=== PATIENT | female | born 1930 | race Caucasian/White ===

== ENCOUNTER 2016-11-14 10:11 | Outpatient (CLI) ==
--- NOTE | 2016-11-14 10:39 | DI ---
EXAM: CHEST FRONTAL AND LATERAL VIEWS HISTORY: Bronchitis. COMPARISON: None FINDINGS: Heart size is normal. Somewhat nodular appearance of the right hilar structures possibly within normal limits for normal variation and regional vascular/bronchovascular architecture. There is moderate atherosclerotic disease. Chronic-appearing interstitial changes diffusely. There is a nodular density over the left lung base measuring 0.6 cm without definite calcification. No vascul ar congestion, consolidated pneumonia, pleural fluid or pneumothorax. IMPRESSION: 1. There is a left lung base nodule of indeterminate etiology. Somewhat nodular appearance of the r ight hilar structures. Follow-up chest radiography is recommended to assure stability. 2. Cannot exclude a component chronic obstructive pulmonary disease. 3. No consolidated pneumonia.
== END 2016-11-14 10:12 | disposition home or self-care (01) ==
LOC: RAD 10:11
PROVIDERS: ATTEND Family Medicine
DX: J40 Bronchitis, not specified as acute or chronic (principal)

== ENCOUNTER 2017-05-03 14:51 | Outpatient (CLI) | END 2017-05-03 14:52 | disposition short-term general hospital (02) | LOC: AMBL 14:51 | PROVIDERS: ATTEND Emergency Medicine | DX: S69.90XA Unspecified injury of unspecified wrist, hand and finger(s), initial encounter (principal); S49.90XA Unspecified injury of shoulder and upper arm, unspecified arm, initial encounter; W19.XXXA Unspecified fall, initial encounter ==

== ENCOUNTER 2017-07-06 13:00 | Outpatient (RCR) ==
--- NOTE | 2017-06-26 18:03 | RS.OTEVAL ---
Subjective Date of Note: 06/26/17 Visit #: 1 Date of Evaluation: 06/26/17 Payer Source: MEDICARE Date of Onset/Injury/Change in Status: 05/03/17 Surgery Performed?: Yes Date of Procedure: 05/09/17 Treatment Diagnosis: Left Intraarticular fracture of Lower end of left radius Treatment Side (optional): Left *Precautions: At risk for falls, painful wrist Prior Level of Function.....Patient was independent with: ADL's, Self Care, Work /Vocation, Caregiving, Ambulation/Mobility, Community Integration/Access History of Condition/Mechanism of Injury: Pt reports she fell on May 03, 2017. Pt was given a soft cast and then had surgery on 05/09/17. Pt was then casted on 05/23/17 with a hard cast and then it was removed on 06/20/17. Pt has had edema and pain and decreased AROM of digits since. Level of Function: Pt completes right arm ADLS. Pt reports difficulty putting on her bra and pulling up her pants and fastening things. Pt is independent with bathing. Pt has difficulty with dressing, cooking, and cleaning and driving. Functional Limitations: Sleep, Self Care, ADL's, Reaching, Pushing, Pulling, Lifting, Carrying, Sitting, Community Access/Integration Current Complaints/Gains: Pt has difficulty putting on her bra. Pt has difficulty pulling up her pants. Self care that requires two hands is difficult. Pt is not able to carry items with the LUE due to limited supination and digit flexion due to edema and pain of LUE. Medical History Medical History Comments:: Face cancer, and Bladder cancer, Thyroid surgery, hysterectomy, tonsils Surgical History Comments:: Surgery to Left wrist "T" Fracture with plate and 6 screws on 05/09/17, tonsils removed, thyroid, hysterectomy, gall bladder, melanoma, bladder cancer. Diagnostic Testing/Imaging:: x-ray, Hx Home Medications: Leviroxin, Metoprolol, Warfarin, Citlopram Pain Assessment - Pain Description Pain Description: Burning, Tightness, Radiating, Sharp, Throbbing, Aching, Acute Pain Location: Left wrist and forearm. Pain with supination on the little finger side. Pain Description: tight, aching Current Pain Intensity: 3 Functional Outcome Measures UE Functional Index: 73 - G Codes & Severity Modifier G Codes: Current level is CL 73%. Goal level is CI is 1-19% Source of G Code score: Carrying, moving, and handling objects. Observation - Observation Posture: Normal Handedness: Right Shoulder ROM: Bilaterally WFL's Shoulder Muscle Strength: Bilaterally WFL's - Special Tests Shoulder Speed's Sign Test: Negative Left Shoulder Drop Arm Test: Negative Left Elbow ROM: Right WFL's Elbow Muscle Strength: Right WFL's - Left Elbow ROM Left Elbow Extension: -25 Left Elbow Flexion: 155 Left Elbow Supination: 45 Left Elbow Pronation: 75 Left Elbow ROM Limitations: Muscle Weakness, Pain - Left Elbow Strength Left Elbow Extension: 3- Fair- Left Elbow Flexion: 3- Fair- Left Forearm Pronation: 2 Poor Left Forearm Supination: 2 Poor - Left Wrist/Hand ROM Left Wrist Extension: 5 Left Wrist Flexion: 30 Left Wrist Radial Deviation: 10 Left Wrist Ulnar Deviation: 15 Left Forearm Pronation: 75 Left Forearm Supination: 45 Left Wrist ROM Testing Limitations: Muscle Weakness, Pain - Right Wrist/Hand ROM Right Wrist Extension: 45 Right Wrist Flexion: 65 - Left Wrist Strength Left Wrist Extension: 2 Poor Left Wrist Flexion: 2 Poor Left Wrist Radial Deviation: 2 Poor Left Wrist Ulnar Deviation: 2 Poor Left Forearm Pronation: 2 Poor Left Forearm Supination: 2 Poor - Right Wrist Strength Right Wrist Extension: 4+ Good + Right Wrist Flexion: 4+ Good + Right Wrist Radial Deviation: 4+ Good + Right Wrist Ulnar Deviation: 4+ Good + Right Forearm Pronation: 4+ Good + Right Forearm Supination: 4+ Good + - Plaster Helper Strength Left Plaster Helper Strength: 35 Plaster Helper Strength Left Hand Plaster Helper Strength: N/A Right Hand Plaster Helper Strength: 35# Dynamometer Testing Position: 2nd Position Palpation Palpation Findings: Tenderness, Muscle Guarding Sensation Right Upper Extremity: Intact/Normal Left Upper Extremity: Intact/Normal Sensation Description: Numbness Interventions - Exercise/Activities Exercise/Activities/Manual Therapy: Milking massage to decrease edema of LUE digits, hand, wrist, and forearm. Progressive stretching of LUE wrist into supination. LUE wrist extension/flexion x 10 reps each. HOME EXERCISE PROGRAM: contrast Bath instructions for one minute in hot water less than 105 [address]. F, and one minute in pitcher of ice water and rotate 3X. End on a cold. 2X/ day at least, Educated pt on ways to stretch her LUE wrist and digits into flexion, educated patient on how to complete with digits: Hook formation, long fist, full fist, and roof positions. - Other Treatment/Services Other Services/Treatments: Contrast Bath - Charges Timed Code Treatment Minutes: EX 20 minutes Total Treatment Time: 1:20 Procedures billed for this date of service:: EX, Evaluation Moderate EVALUATION COMPLEXITY LEVEL: HISTORY: Medium, EXAM OF BODY SYSTEMS: Medium, CLINICAL DECISION MAKING: Medium Assessment Assessment: Edema of digits: LUE thumb- 8 cm, Index, 8 cm, Long-7.3 cm, ring- 7.2 cm, Small 6.0 cm. Left wrist circumference is 18.5 cm, left palmar crease is 20.1 cm. RUE thumb- 7.0cm, Index 7 cm, Long- 6.5 cm, ring 6.4 cm, small- 5.5 cm. Right wrist circumference is 16.8 cm, Right palmar crease is 18.5 cm Patient Education: Education of diagnosis, Home Exercise Program, Education of Plan of Care Rehab Potential: Good Problems/Comments: Pt has extreme difficulty using her LUE due to the edema of the LUE. Pt has limited digit flexion and extension, limited left wrist flexion/ extension, limited supination/pronation of LUE. Pt has difficulty in completing her ADLS. Short Term Goals Goal #1: Pt to be able to make a full fist. Goal to be met by: 07/10/17 Goal #2: Pt to increase LUE wrist flexion to 65 degrees. Goal to be met by: 07/10/17 Goal #3: Pt to increase LUE wrist extension to 50 degrees. Goal to be met by: 07/10/17 Goal #4: Pt to increase mass agriculture extension specialist of LUE to 20# Goal to be met by: 07/10/17 Mcfp Goals Goal #1: Pt to be able to flower picker a weighted ball with the LUE. Goal to be met by: 07/31/17 Goal #2: Pt to increase LUE wrist AROM to be WFL. Goal to be met by: 07/31/17 Goal #3: Pt to be independent with Home exercise program Goal to be met by: 07/31/17 Goal #4: Pt to increase mass agriculture extension specialist of LUE to 30# Goal to be met by: 07/31/17 Plan - Treatment to be provided Procedures: Therapeutic Exercises, Therapeutic Activity, Neuromuscular Rehab, Manual Therapy Modalities: Electrical Stimulation, Ultrasound/Phonophoresis, Class IV Laser, Cryotherapy, Hot Packs - Treatment Plan Frequency: 3 X week Duration: 4 weeks ORDER # VISITS AND/OR THROUGH DATE: July 31, 2017 - Treatment Code (1) Left wrist fracture Code(s): S62.102A - FRACTURE OF UNSP CARPAL BONE, LEFT WRIST, INIT FOR CLOS FX Qualifiers: Fracture type: closed (2) Stiffness of left wrist joint Code(s): M25.632 - STIFFNESS OF LEFT WRIST, NOT ELSEWHERE CLASSIFIED Comments: M25.632 Left wrist joint stiffness (3) Left wrist pain Code(s): M25.532 - PAIN IN LEFT WRIST Comments: M25.532
--- NOTE | 2017-06-27 15:55 | RS.OTDNOTE ---
Subjective Date of Note: 06/27/17 Visit #: 2 Date of Evaluation: 06/26/17 Payer Source: MEDICARE Date of Onset/Injury/Change in Status: 05/03/17 Surgery Performed?: Yes Date of Procedure: 05/09/17 Treatment Diagnosis: Left Intraarticular fracture of Lower end of left radius Treatment Side (optional): Left *Precautions: At risk for falls, painful wrist Prior Level of Function.....Patient was independent with: ADL's, Self Care, Work /Vocation, Caregiving, Ambulation/Mobility, Community Integration/Access History of Condition/Mechanism of Injury: Pt reports she fell on May 03, 2017. Pt was given a soft cast and then had surgery on 05/09/17. Pt was then casted on 05/23/17 with a hard cast and then it was removed on 06/20/17. Pt has had edema and pain and decreased AROM of digits since. Level of Function: Pt completes right arm ADLS. Pt reports difficulty putting on her bra and pulling up her pants and fastening things. Pt is independent with bathing. Pt has difficulty with dressing, cooking, and cleaning and driving. Functional Limitations: Sleep, Self Care, ADL's, Reaching, Pushing, Pulling, Lifting, Carrying, Sitting, Community Access/Integration Current Complaints/Gains: Pt states good compliance with perfoming contrast baths at home. States she sleeps on her side but has not been ed on positoning of UE to aide in edema reduction. Pain Assessment - Pain Description Pain Description: Burning, Tightness, Radiating, Sharp, Throbbing, Aching, Acute Pain Location: Left wrist and forearm. Pain with supination on the little finger side. Pain Description: tight, aching Current Pain Intensity: 1-2 Worst Pain Intensity: 5-6 Modalities - Treatment Modality: Class 4 Laser Parameters/Method Applied: Edema reduction protocol Treatment Area: wrist/hand Patient Position: Sitting - Hot Pack/Cryotherapy Treatment: Cryotherapy (CP x 10 mins following TE/MT prior to laser tx) Interventions - Exercise/Activities Exercise/Activities/Manual Therapy: Retro-grade massage performed with pt ed provided to decrease edema of LUE digits, hand, wrist, and forearm. Progressive stretching of LUE wrist into supination and LUE wrist extension/flexion x 10 reps each/2 sets in G/E plane. Pt ed and completed tendon glides x 5 each with A of roof-tops, cat claw, fists, and ball squeezes with HEP. HOME EXERCISE PROGRAM: contrast Bath instructions for one minute in hot water less than 105 [address]. F, and one minute in pitcher of ice water and rotate 3X. End on a cold. 2X/ day at least, Educated pt on ways to stretch her LUE wrist and digits into flexion, educated patient on how to complete with digits: Hook formation, long fist, full fist, and roof positions. - Objective Findings Objective Findings:: Pt with decreased L wrist and finger edema following tx. - Charges Timed Code Treatment Minutes: 44 Total Treatment Time: 54 Procedures billed for this date of service:: CP EX MT 0 charge laser Assessment Patient Education: Education of diagnosis, Body/Joint mechanics, Home Exercise Program, Home Safety, Activity Modification, Education of Plan of Care Patient demonstrates compliance with HEP?: Yes Short Term Goals Goal #1: Pt to be able to make a full fist. Goal to be met by: 07/10/17 Progress towards goal: Progressing Goal #2: Pt to increase LUE wrist flexion to 65 degrees. Goal to be met by: 07/10/17 Progress towards goal: Progressing Goal #3: Pt to increase LUE wrist extension to 50 degrees. Goal to be met by: 07/10/17 Progress towards goal: Progressing Goal #4: Pt to increase mass cow washer of LUE to 20# Goal to be met by: 07/10/17 Progress towards goal: Progressing Pharmacy Services Director Goals Goal #1: Pt to be able to picket labor union a weighted ball with the LUE. Goal to be met by: 07/31/17 Progress towards goal: Progressing Goal #2: Pt to increase LUE wrist AROM to be WFL. Goal to be met by: 07/31/17 Progress towards goal: Progressing Goal #3: Pt to be independent with Home exercise program Goal to be met by: 07/31/17 Progress towards goal: Progressing Goal #4: Pt to increase mass cow washer of LUE to 30# Goal to be met by: 07/31/17 Progress towards goal: Progressing Plan PLAN OF CARE EXPIRES ON:: 05/02/17 ORDER # VISITS AND/OR THROUGH DATE: July 31, 2017 PLAN: Cont current POC to decrease edema, increase AROM/strength to return to PLOF. Frequency: 3 X week Duration: 4 weeks
--- NOTE | 2017-06-28 09:12 | RS.OTCXNS ---
OT Case Note Date of Scheduled Appointment: 06/28/17 Type: Cancel (Pt's spouse is in hospital)
--- NOTE | 2017-07-02 14:49 | RS.OTDNOTE ---
Subjective Date of Note: 07/02/17 Visit #: 3 Date of Evaluation: 06/26/17 Payer Source: MEDICARE Date of Onset/Injury/Change in Status: 05/03/17 Surgery Performed?: Yes Date of Procedure: 05/09/17 Treatment Diagnosis: Left Intraarticular fracture of Lower end of left radius Treatment Side (optional): Left *Precautions: At risk for falls, painful wrist Prior Level of Function.....Patient was independent with: ADL's, Self Care, Work /Vocation, Caregiving, Ambulation/Mobility, Community Integration/Access History of Condition/Mechanism of Injury: Pt reports she fell on May 03, 2017. Pt was given a soft cast and then had surgery on 05/09/17. Pt was then casted on 05/23/17 with a hard cast and then it was removed on 06/20/17. Pt has had edema and pain and decreased AROM of digits since. Level of Function: Pt completes right arm ADLS. Pt reports difficulty putting on her bra and pulling up her pants and fastening things. Pt is independent with bathing. Pt has difficulty with dressing, cooking, and cleaning and driving. Functional Limitations: Sleep, Self Care, ADL's, Reaching, Pushing, Pulling, Lifting, Carrying, Sitting, Community Access/Integration Current Complaints/Gains: Pt states good compliance with HEP and utilizing CP at home. States she is unable to hook a bra or snap buttons on shirts pants but is now able to jorge luis pants and perform all toileting hyg with no trouble. Pain Assessment - Pain Description Pain Description: Burning, Tightness, Radiating, Sharp, Throbbing, Aching, Acute Pain Location: Left wrist and forearm. Pain with supination on the little finger side. Pain Description: tight, aching Current Pain Intensity: 3 Worst Pain Intensity: 7 Other comments regarding pain:: Pain increase with supination and digit flexion the most this date Modalities - Hot Pack/Cryotherapy Treatment: Cryotherapy (CP x 12+ mins following therapy) Interventions - Exercise/Activities Exercise/Activities/Manual Therapy: Retro-grade massage performed with pt ed provided to decrease edema of LUE digits, hand, wrist, and forearm. Progressive stretching of LUE wrist into supination and LUE wrist extension/flexion x 10 reps each/2 sets in G/E plane along with radial/ulna deviation. Pt ed and completed tendon glides x 10/2 each with AROM and progressive PROM/gentle stretching of roof-tops, cat claw, fists, and ball squeezes with HEP instruction continued. AROM wrist feeder catcher tobacco, yellow (1.5#) digifex, yellow tputty (HEP) and wrist roll up. Digit opposition/thumb to palm ex also performed HOME EXERCISE PROGRAM: contrast Bath instructions for one minute in hot water less than 105 deg. F, and one minute in pitcher of ice water and rotate 3X. End on a cold. 2X/ day at least, Educated pt on ways to stretch her LUE wrist and digits into flexion, educated patient on how to complete with digits: Hook formation, long fist, full fist, and roof positions. Yellow t-putty and digit opposition - Objective Findings Objective Findings:: Pt with decreased L wrist and finger edema following tx. - Charges Timed Code Treatment Minutes: 48 Total Treatment Time: 60 Procedures billed for this date of service:: CP MT2 EX Assessment Patient Education: Education of diagnosis, Body/Joint mechanics, Home Exercise Program, Home Safety, Activity Modification, Education of Plan of Care Patient demonstrates compliance with HEP?: Yes Short Term Goals Goal #1: Pt to be able to make a full fist. Goal to be met by: 07/10/17 Progress towards goal: Progressing Goal #2: Pt to increase LUE wrist flexion to 65 degrees. Goal to be met by: 07/10/17 Progress towards goal: Progressing Goal #3: Pt to increase LUE wrist extension to 50 degrees. Goal to be met by: 07/10/17 Progress towards goal: Progressing Goal #4: Pt to increase mass graphic manager of LUE to 20# Goal to be met by: 07/10/17 Progress towards goal: Progressing Strategic Business Development Goals Goal #1: Pt to be able to turkey picker a weighted ball with the LUE. Goal to be met by: 07/31/17 Progress towards goal: Progressing Goal #2: Pt to increase LUE wrist AROM to be WFL. Goal to be met by: 07/31/17 Progress towards goal: Progressing Goal #3: Pt to be independent with Home exercise program Goal to be met by: 07/31/17 Progress towards goal: Progressing Goal #4: Pt to increase mass graphic manager of LUE to 30# Goal to be met by: 07/31/17 Progress towards goal: Progressing Plan PLAN OF CARE EXPIRES ON:: 07/31/17 ORDER # VISITS AND/OR THROUGH DATE: July 31, 2017 PLAN: Cont per POC to max fx use of (L) hand/wrist Frequency: 2 X week Duration: 4 weeks
--- NOTE | 2017-07-04 13:57 | RS.OTDNOTE ---
Subjective Date of Note: 07/04/17 Visit #: 4 Date of Evaluation: 06/26/17 Payer Source: MEDICARE Date of Onset/Injury/Change in Status: 05/03/17 Surgery Performed?: Yes Date of Procedure: 05/09/17 Treatment Diagnosis: Left Intraarticular fracture of Lower end of left radius Treatment Side (optional): Left *Precautions: At risk for falls, painful wrist Prior Level of Function.....Patient was independent with: ADL's, Self Care, Work /Vocation, Caregiving, Ambulation/Mobility, Community Integration/Access History of Condition/Mechanism of Injury: Pt reports she fell on May 03, 2017. Pt was given a soft cast and then had surgery on 05/09/17. Pt was then casted on 05/23/17 with a hard cast and then it was removed on 06/20/17. Pt has had edema and pain and decreased AROM of digits since. Level of Function: Pt completes right arm ADLS. Pt reports difficulty putting on her bra and pulling up her pants and fastening things. Pt is independent with bathing. Pt has difficulty with dressing, cooking, and cleaning and driving. Functional Limitations: Sleep, Self Care, ADL's, Reaching, Pushing, Pulling, Lifting, Carrying, Sitting, Community Access/Integration Current Complaints/Gains: pt states she forgot to sleep with the splint on last night. States good compliance with HEP and performing AROM/digit opposition. States and demo increased swelling this date. Pain Assessment - Pain Description Pain Description: Burning, Tightness, Radiating, Sharp, Throbbing, Aching, Acute Pain Location: Left wrist and forearm. Pain with supination on the little finger side. Pain Description: tight, aching Current Pain Intensity: 2 Worst Pain Intensity: 7 Other comments regarding pain:: "sore", "just before cry time" Modalities - Hot Pack/Cryotherapy Treatment: Cryotherapy (CP X 10+ mins) Interventions - Exercise/Activities Exercise/Activities/Manual Therapy: Retro-grade massage performed with pt ed provided to decrease edema of LUE digits, hand, wrist, and forearm. Progressive stretching of LUE wrist into supination and LUE wrist extension/flexion x 10 reps each/2 sets in G/E plane along with radial/ulna deviation. Pt ed and completed tendon glides x 10/2 each with AROM and progressive PROM/gentle stretching of roof-tops, cat claw, fists, and ball squeezes with HEP instruction continued. AROM wrist cloud systems architect, yellow (1.5#) and red (3#) digifex , yellow/red tputty (HEP) and wrist roll up. Digit opposition/thumb to palm ex also performed HOME EXERCISE PROGRAM: contrast Bath instructions for one minute in hot water less than 105 deg. F, and one minute in pitcher of ice water and rotate 3X. End on a cold. 2X/ day at least, Educated pt on ways to stretch her LUE wrist and digits into flexion, educated patient on how to complete with digits: Hook formation, long fist, full fist, and roof positions. Yellow t-putty and digit opposition - Objective Findings Objective Findings:: Pt with decreased L wrist and finger edema following tx. - Charges Timed Code Treatment Minutes: 52 Total Treatment Time: 62 Procedures billed for this date of service:: CP EX MT Assessment Patient Education: Education of diagnosis, Body/Joint mechanics, Home Exercise Program, Home Safety, Activity Modification, Education of Plan of Care Problems/Comments: States she is utilizing (L) hand more during clothing erwin Patient demonstrates compliance with HEP?: Yes Short Term Goals Goal #1: Pt to be able to make a full fist. Goal to be met by: 07/10/17 Progress towards goal: Progressing Goal #2: Pt to increase LUE wrist flexion to 65 degrees. Goal to be met by: 07/10/17 Progress towards goal: Progressing Goal #3: Pt to increase LUE wrist extension to 50 degrees. Goal to be met by: 07/10/17 Progress towards goal: Progressing Goal #4: Pt to increase mass building rental manager of LUE to 20# Goal to be met by: 07/10/17 Progress towards goal: Progressing Speed Winder Goals Goal #1: Pt to be able to pickle solution maker a weighted ball with the LUE. Goal to be met by: 07/31/17 Progress towards goal: Progressing Goal #2: Pt to increase LUE wrist AROM to be WFL. Goal to be met by: 07/31/17 Progress towards goal: Progressing Goal #3: Pt to be independent with Home exercise program Goal to be met by: 07/31/17 Progress towards goal: Progressing Goal #4: Pt to increase mass building rental manager of LUE to 30# Goal to be met by: 07/31/17 Progress towards goal: Progressing Plan PLAN OF CARE EXPIRES ON:: 07/31/17 ORDER # VISITS AND/OR THROUGH DATE: July 31, 2017 PLAN: Cont per POC to max fx I, strength, and AROM of L hand/wrist Frequency: 3 X week Duration: 3 weeks
--- NOTE | 2017-07-09 08:24 | RS.OTDNOTE ---
Subjective Date of Note: 07/06/17 Visit #: 4 Date of Evaluation: 06/26/17 Payer Source: MEDICARE Date of Onset/Injury/Change in Status: 05/03/17 Surgery Performed?: Yes Date of Procedure: 05/09/17 Treatment Diagnosis: Left Intraarticular fracture of Lower end of left radius Treatment Side (optional): Left *Precautions: At risk for falls, painful wrist Prior Level of Function.....Patient was independent with: ADL's, Self Care, Work /Vocation, Caregiving, Ambulation/Mobility, Community Integration/Access History of Condition/Mechanism of Injury: Pt reports she fell on May 03, 2017. Pt was given a soft cast and then had surgery on 05/09/17. Pt was then casted on 05/23/17 with a hard cast and then it was removed on 06/20/17. Pt has had edema and pain and decreased AROM of digits since. Level of Function: Pt completes right arm ADLS. Pt reports difficulty putting on her bra and pulling up her pants and fastening things. Pt is independent with bathing. Pt has difficulty with dressing, cooking, and cleaning and driving. Functional Limitations: Sleep, Self Care, ADL's, Reaching, Pushing, Pulling, Lifting, Carrying, Sitting, Community Access/Integration Current Complaints/Gains: Pt continues stating good compliance with HEP. States swelling increases during the day and doing home erwin and ADL's. States the warm water from dish washing feels good and she tries to move her hand around. Pain Assessment - Pain Description Pain Description: Burning, Tightness, Radiating, Sharp, Throbbing, Aching, Acute Pain Location: Left wrist and forearm. Pain with supination on the little finger side. Pain Description: tight, aching Modalities - Treatment Modality: Ultrasound Parameters/Method Applied: .04w/cm2 x 10 mins to ulna Patient Position: Sitting - Hot Pack/Cryotherapy Treatment: Cryotherapy (CP x 10+ mins) Interventions - Exercise/Activities Exercise/Activities/Manual Therapy: Retro-grade massage performed with pt ed provided to decrease edema of LUE digits, hand, wrist, and forearm. Progressive stretching of LUE wrist into supination and LUE wrist extension/flexion x 10 reps each/2 sets in G/E plane along with radial/ulna deviation. Pt ed and completed tendon glides x 10/2 each with AROM and progressive PROM/gentle stretching of roof-tops, cat claw, fists, and ball squeezes with HEP instruction continued. AROM wrist tourist adviser, yellow (1.5#) and red (3#) digifex , yellow/red tputty (HEP) and wrist roll up. Digit opposition/thumb to palm ex also performed HOME EXERCISE PROGRAM: contrast Bath instructions for one minute in hot water less than 105 [address]. F, and one minute in pitcher of ice water and rotate 3X. End on a cold. 2X/ day at least, Educated pt on ways to stretch her LUE wrist and digits into flexion, educated patient on how to complete with digits: Hook formation, long fist, full fist, and roof positions. Yellow t-putty and digit opposition - Objective Findings Objective Findings:: Pt with decreased L wrist and finger edema following tx. - Charges Timed Code Treatment Minutes: 45 Total Treatment Time: 60 Procedures billed for this date of service:: MT2 CP US Assessment Patient Education: Education of diagnosis, Body/Joint mechanics, Home Exercise Program, Home Safety, Activity Modification, Education of Plan of Care Patient demonstrates compliance with HEP?: Yes Short Term Goals Goal #1: Pt to be able to make a full fist. Goal to be met by: 07/10/17 Progress towards goal: Progressing Goal #2: Pt to increase LUE wrist flexion to 65 degrees. Goal to be met by: 07/10/17 Progress towards goal: Progressing Goal #3: Pt to increase LUE wrist extension to 50 degrees. Goal to be met by: 07/10/17 Progress towards goal: Progressing Goal #4: Pt to increase mass turning machine operator helper of LUE to 20# Goal to be met by: 07/10/17 Progress towards goal: Progressing Dental Technician Metal Goals Goal #1: Pt to be able to pickling tank operator a weighted ball with the LUE. Goal to be met by: 07/31/17 Progress towards goal: Progressing Goal #2: Pt to increase LUE wrist AROM to be WFL. Goal to be met by: 07/31/17 Progress towards goal: Progressing Goal #3: Pt to be independent with Home exercise program Goal to be met by: 07/31/17 Progress towards goal: Progressing Goal #4: Pt to increase mass turning machine operator helper of LUE to 30# Goal to be met by: 07/31/17 Progress towards goal: Progressing Plan PLAN OF CARE EXPIRES ON:: 07/31/17 ORDER # VISITS AND/OR THROUGH DATE: July 31, 2017 PLAN: Cont per POC to decrease edema/pain and increase ROM Frequency: 3 X week Duration: 3 weeks
== END 2017-07-07 ==
PROVIDERS: ATTEND Physician Assistant
DX: S52.572D Other intraarticular fracture of lower end of left radius, subsequent encounter for closed fracture with routine healing (principal)

== ENCOUNTER 2017-07-31 13:00 | Outpatient (RCR) ==
--- NOTE | 2017-07-10 13:01 | RS.OTDNOTE ---
Subjective Date of Note: 07/10/17 Visit #: 5 Date of Evaluation: 06/26/17 Payer Source: MEDICARE Date of Onset/Injury/Change in Status: 05/03/17 Surgery Performed?: Yes Treatment Diagnosis: Left Intraarticular fracture of Lower end of left radius Treatment Side (optional): Left *Precautions: At risk for falls, painful wrist Prior Level of Function.....Patient was independent with: ADL's, Self Care, Work /Vocation, Caregiving, Ambulation/Mobility, Community Integration/Access History of Condition/Mechanism of Injury: Pt reports she fell on May 03, 2017. Pt was given a soft cast and then had surgery on 05/09/17. Pt was then casted on 05/23/17 with a hard cast and then it was removed on 06/20/17. Pt has had edema and pain and decreased AROM of digits since. Level of Function: Pt completes right arm ADLS. Pt reports difficulty putting on her bra and pulling up her pants and fastening things. Pt is independent with bathing. Pt has difficulty with dressing, cooking, and cleaning and driving. Functional Limitations: Sleep, Self Care, ADL's, Reaching, Pushing, Pulling, Lifting, Carrying, Sitting, Community Access/Integration Current Complaints/Gains: Pt states she is taking care of 4 grandchildren, 2 infants ages 1 and 2 which require lifting. States good compliance with applying CP and performing HEP. Pain Assessment - Pain Description Pain Location: Left wrist and forearm. Pain with supination on the little finger side. Pain Description: tight, aching Current Pain Intensity: 2-3 Worst Pain Intensity: 8 Modalities - Treatment Modality: Ultrasound Parameters/Method Applied: .04w/cm2 x 10 mins to ulna Patient Position: Sitting - Hot Pack/Cryotherapy Treatment: Cryotherapy (x 15 mins total) Interventions - Exercise/Activities Exercise/Activities/Manual Therapy: Retro-grade massage performed with pt ed provided to decrease edema of LUE digits, hand, wrist, and forearm. Progressive stretching of LUE wrist into supination and LUE wrist extension/flexion x 10 reps each/2 sets in G/E plane along with radial/ulna deviation. Pt ed and completed tendon glides x 10/2 each with AROM and progressive PROM/gentle stretching of roof-tops, cat claw, fists, and ball squeezes with HEP instruction continued. AROM wrist box stapler, yellow (1.5#) and red (3#) digifex , yellow/red tputty (HEP) and wrist roll up. Digit opposition/thumb to palm ex also performed HOME EXERCISE PROGRAM: contrast Bath instructions for one minute in hot water less than 105 [address]. F, and one minute in pitcher of ice water and rotate 3X. End on a cold. 2X/ day at least, Educated pt on ways to stretch her LUE wrist and digits into flexion, educated patient on how to complete with digits: Hook formation, long fist, full fist, and roof positions. Yellow t-putty and digit opposition - Objective Findings Objective Findings:: Pt with decreased L wrist and finger edema following tx. States she was able to get hand into full supination position to hold pills. - Charges Timed Code Treatment Minutes: 40 Total Treatment Time: 55 Procedures billed for this date of service:: CP US EX MT Assessment Patient Education: Education of diagnosis, Body/Joint mechanics, Home Exercise Program, Home Safety, Activity Modification, Education of Plan of Care Patient demonstrates compliance with HEP?: Yes Short Term Goals Goal #1: Pt to be able to make a full fist. Goal to be met by: 07/10/17 Progress towards goal: Progressing Goal #2: Pt to increase LUE wrist flexion to 65 degrees. Goal to be met by: 07/10/17 Progress towards goal: Progressing Goal #3: Pt to increase LUE wrist extension to 50 degrees. Goal to be met by: 07/10/17 Progress towards goal: Progressing Goal #4: Pt to increase mass soft boarder of LUE to 20# Goal to be met by: 07/10/17 Progress towards goal: Progressing Half-Way Goals Goal #1: Pt to be able to bulk picker a weighted ball with the LUE. Goal to be met by: 07/31/17 Progress towards goal: Progressing Goal #2: Pt to increase LUE wrist AROM to be WFL. Goal to be met by: 07/31/17 Progress towards goal: Progressing Goal #3: Pt to be independent with Home exercise program Goal to be met by: 07/31/17 Progress towards goal: Progressing Goal #4: Pt to increase mass soft boarder of LUE to 30# Goal to be met by: 07/31/17 Progress towards goal: Progressing Plan PLAN OF CARE EXPIRES ON:: 07/31/17 ORDER # VISITS AND/OR THROUGH DATE: July 31, 2017 PLAN: Cont per POC to max fx use of (L) hand with increased strength for ADL's Frequency: 2 X week Duration: 2 weeks
--- NOTE | 2017-07-12 08:45 | RS.OTCXNS ---
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
--- NOTE | 2017-07-13 11:33 | RS.OTDNOTE ---
Subjective Date of Note: 07/13/17 Visit #: 5 Date of Evaluation: 06/26/17 Payer Source: MEDICARE Date of Onset/Injury/Change in Status: 05/03/17 Surgery Performed?: Yes Treatment Diagnosis: Left Intraarticular fracture of Lower end of left radius Treatment Side (optional): Left *Precautions: At risk for falls, painful wrist Prior Level of Function.....Patient was independent with: ADL's, Self Care, Work /Vocation, Caregiving, Ambulation/Mobility, Community Integration/Access History of Condition/Mechanism of Injury: Pt reports she fell on May 03, 2017. Pt was given a soft cast and then had surgery on 05/09/17. Pt was then casted on 05/23/17 with a hard cast and then it was removed on 06/20/17. Pt has had edema and pain and decreased AROM of digits since. Level of Function: Pt completes right arm ADLS. Pt reports difficulty putting on her bra and pulling up her pants and fastening things. Pt is independent with bathing. Pt has difficulty with dressing, cooking, and cleaning and driving. Functional Limitations: Sleep, Self Care, ADL's, Reaching, Pushing, Pulling, Lifting, Carrying, Sitting, Community Access/Integration Current Complaints/Gains: Pt states L wrist pain 2* to babysitting toddler's for days and llifting/picking up. States she is utilizing her hand more during fx act and agrees to start trying to open lids/doors with L hand. Pain Assessment - Pain Description Pain Location: Left wrist and forearm. Pain with supination on the little finger side. Pain Description: tight, aching Modalities - Hot Pack/Cryotherapy Treatment: Cryotherapy (CP x 10+ mins following TE/PROM) Interventions - Exercise/Activities Exercise/Activities/Manual Therapy: Retro-grade massage performed with pt ed provided to decrease edema of LUE digits, hand, wrist, and forearm. Progressive stretching of LUE wrist into supination and LUE wrist extension/flexion x 10 reps each/2 sets in G/E plane along with radial/ulnar deviation. Pt ed and completed tendon glides x 10/2 each with AROM and progressive PROM/gentle stretching of roof-tops, cat claw, fists, and ball squeezes with HEP instruction continued. AROM wrist guest services coordinator, yellow (1.5#) and red (3#) digifex , yellow/red tputty (HEP) and wrist roll up. Digit opposition/thumb to palm ex also performed HOME EXERCISE PROGRAM: contrast Bath instructions for one minute in hot water less than 105 [address]. F, and one minute in pitcher of ice water and rotate 3X. End on a cold. 2X/ day at least, Educated pt on ways to stretch her LUE wrist and digits into flexion, educated patient on how to complete with digits: Hook formation, long fist, full fist, and roof positions. Yellow t-putty and digit opposition - Other Treatment/Services Other Services/Treatments: Paraffin Treatment Details: Hand wrapped in digit flexion with coban during paraffin tx - Objective Findings Objective Findings:: Pt with decreased L wrist and finger edema following tx. States she was able to get hand into full supination position to hold pills. - Charges Timed Code Treatment Minutes: 40 Total Treatment Time: 62 Procedures billed for this date of service:: CP paraffin ex MT Assessment Patient Education: Education of diagnosis, Body/Joint mechanics, Home Exercise Program, Home Safety, Activity Modification, Education of Plan of Care Patient demonstrates compliance with HEP?: Yes Short Term Goals Goal #1: Pt to be able to make a full fist. Goal to be met by: 07/10/17 Progress towards goal: Progressing Goal #2: Pt to increase LUE wrist flexion to 65 degrees. Goal to be met by: 07/10/17 Progress towards goal: Progressing Goal #3: Pt to increase LUE wrist extension to 50 degrees. Goal to be met by: 07/10/17 Progress towards goal: Progressing Goal #4: Pt to increase mass security chief museum of LUE to 20# Goal to be met by: 07/10/17 Progress towards goal: Progressing Usp Goals Goal #1: Pt to be able to pharmacy picking tech a weighted ball with the LUE. Goal to be met by: 07/31/17 Progress towards goal: Progressing Goal #2: Pt to increase LUE wrist AROM to be WFL. Goal to be met by: 07/31/17 Progress towards goal: Progressing Goal #3: Pt to be independent with Home exercise program Goal to be met by: 07/31/17 Progress towards goal: Progressing Goal #4: Pt to increase mass security chief museum of LUE to 30# Goal to be met by: 04/24/18 Progress towards goal: Progressing Plan PLAN OF CARE EXPIRES ON:: 07/31/17 ORDER # VISITS AND/OR THROUGH DATE: July 31, 2017 PLAN: Cont per POC to max fx ADL use of L UE with decreased pain/increased strength Frequency: 3 X week Duration: 2 weeks
--- NOTE | 2017-07-16 16:24 | RS.OTDNOTE ---
Subjective Date of Note: 07/16/17 Visit #: 6 Date of Evaluation: 06/26/17 Payer Source: MEDICARE Date of Onset/Injury/Change in Status: 05/03/17 Surgery Performed?: Yes Treatment Diagnosis: Left Intraarticular fracture of Lower end of left radius Treatment Side (optional): Left *Precautions: At risk for falls, painful wrist Prior Level of Function.....Patient was independent with: ADL's, Self Care, Work /Vocation, Caregiving, Ambulation/Mobility, Community Integration/Access History of Condition/Mechanism of Injury: Pt reports she fell on May 03, 2017. Pt was given a soft cast and then had surgery on 05/09/17. Pt was then casted on 05/23/17 with a hard cast and then it was removed on 06/20/17. Pt has had edema and pain and decreased AROM of digits since. Level of Function: Pt completes right arm ADLS. Pt reports difficulty putting on her bra and pulling up her pants and fastening things. Pt is independent with bathing. Pt has difficulty with dressing, cooking, and cleaning and driving. Functional Limitations: Sleep, Self Care, ADL's, Reaching, Pushing, Pulling, Lifting, Carrying, Sitting, Community Access/Integration Current Complaints/Gains: That her digits hurt and do not bend. She reports she is starting to use it more. Pain Assessment - Pain Description Pain Description: Tightness, Sharp Pain Location: Left wrist and forearm. Pain with supination on the little finger side. Pain Description: tight, aching Current Pain Intensity: 5 Modalities - Hot Pack/Cryotherapy Treatment: Cryotherapy Interventions - Exercise/Activities Exercise/Activities/Manual Therapy: Pt complained of pain in the small digit, in the ulnar aspect of her hand. Pt tolerated Manual therapy to the subscapularies, Progressive stretching of LUE wrist into supination and LUE wrist extension/flexion x 10 reps each/2 sets in G/E plane along with radial/ ulnar deviation. Pt ed and completed tendon glides x 10/2 each with AROM and progressive PROM/gentle stretching of roof-tops, cat claw, fists, and ball squeezes with HEP instruction continued. Pt completed putty exercises. Pt was asked to squeeze the putty 2-3 x a day for 3 minutes to increase the flexion of the digits. Pt tolerated manual therapy to the tender points of the subscapularis, extensors of foream, stretching into a full fist. HOME EXERCISE PROGRAM: contrast Bath instructions for one minute in hot water less than 105 [address]. F, and one minute in pitcher of ice water and rotate 3X. End on a cold. 2X/ day at least, Educated pt on ways to stretch her LUE wrist and digits into flexion, educated patient on how to complete with digits: Hook formation, long fist, full fist, and roof positions. Yellow t-putty and digit opposition - Objective Findings Objective Findings:: Pt with decreased L wrist and finger edema following tx. States she was able to get hand into full supination position to hold pills. - Charges Timed Code Treatment Minutes: 65 Total Treatment Time: 60 Procedures billed for this date of service:: MT x 2, EX x 2, CP Assessment Assessment: Pt is improving in the AROM of the digits, wrist flexion and extension, and supination of the LUE with OT. Problems/Comments: Pt was having pain in her skin, and posterior scapula, and infraspinatus. Patient demonstrates compliance with HEP?: Yes Short Term Goals Goal #1: Pt to be able to make a full fist. Goal to be met by: 07/10/17 Progress towards goal: Progressing Goal #2: Pt to increase LUE wrist flexion to 65 degrees. Goal to be met by: 07/10/17 Progress towards goal: Progressing Goal #3: Pt to increase LUE wrist extension to 50 degrees. Goal to be met by: 07/10/17 Progress towards goal: Progressing Goal #4: Pt to increase mass bait maker of LUE to 20# Goal to be met by: 07/10/17 Progress towards goal: Progressing Intermediate Goals Goal #1: Pt to be able to strip picker a weighted ball with the LUE. Goal to be met by: 07/31/17 Progress towards goal: Progressing Goal #2: Pt to increase LUE wrist AROM to be WFL. Goal to be met by: 07/31/17 Progress towards goal: Progressing Goal #3: Pt to be independent with Home exercise program Goal to be met by: 07/31/17 Progress towards goal: Progressing Goal #4: Pt to increase mass bait maker of LUE to 30# Goal to be met by: 07/31/17 Progress towards goal: Progressing Plan PLAN OF CARE EXPIRES ON:: 07/31/17 ORDER # VISITS AND/OR THROUGH DATE: July 31, 2017 PLAN: Will continue with PRE's, stretching, education, manual therapy, joint mobs. Frequency: 3 X week Duration: 4 weeks
--- NOTE | 2017-07-19 08:29 | RS.OTDNOTE ---
Subjective Date of Note: 07/18/17 Visit #: 7 Date of Evaluation: 06/26/17 Payer Source: MEDICARE Date of Onset/Injury/Change in Status: 05/03/17 Surgery Performed?: Yes Treatment Diagnosis: Left Intraarticular fracture of Lower end of left radius Treatment Side (optional): Left *Precautions: At risk for falls, painful wrist Prior Level of Function.....Patient was independent with: ADL's, Self Care, Work /Vocation, Caregiving, Ambulation/Mobility, Community Integration/Access History of Condition/Mechanism of Injury: Pt reports she fell on May 03, 2017. Pt was given a soft cast and then had surgery on 05/09/17. Pt was then casted on 05/23/17 with a hard cast and then it was removed on 06/20/17. Pt has had edema and pain and decreased AROM of digits since. Level of Function: Pt completes right arm ADLS. Pt reports difficulty putting on her bra and pulling up her pants and fastening things. Pt is independent with bathing. Pt has difficulty with dressing, cooking, and cleaning and driving. Functional Limitations: Sleep, Self Care, ADL's, Reaching, Pushing, Pulling, Lifting, Carrying, Sitting, Community Access/Integration Current Complaints/Gains: Pt c/o pain in the ulnar aspect of the left wrist. Pt has improved in left digit flexion. Pt is able to pump her hands to increase the flexion to 75% of a full fist. Pain Assessment - Pain Description Pain Description: Tightness, Sharp Pain Location: Left wrist and forearm. Pain with supination on the little finger side. Pain Description: tight, aching Current Pain Intensity: 5 Worst Pain Intensity: 7 Modalities - Treatment Modality: Ultrasound Parameters/Method Applied: .4 w/cm2 for 8 minutes while pt is trying to flex her digits. US is administered over the metacarpals area to increase elasticity of the digits. Pt's digits are improving in the flexion when stretched. Pt does have pain in the digits when moving from flexion to extension and back into flexion. Treatment Area: Left hand/wrist Patient Position: Sitting Interventions - Exercise/Activities Exercise/Activities/Manual Therapy: Pt complained of pain in the small digit, in the ulnar aspect of her hand/wrist. Pt tolerated Manual therapy to the serratus posterior superior, extensor carpi ulnaris, extensor digitorum. Progressive stretching of LUE wrist into supination and LUE wrist extension/ flexion x 10 reps each/2 sets along with radial/ulnar deviation. Pt ed and completed tendon glides x 10/2 each with AROM and progressive PROM/gentle stretching of roof-tops, cat claw, fists, and ball squeezes with HEP instruction continued. Pt was to increase the flexion of the digits. Pt tolerated stretching into full fist with left wrist flexion and increased pain. Hand pumps and full fist x 20 reps. HOME EXERCISE PROGRAM: contrast Bath instructions for one minute in hot water less than 105 [address]. F, and one minute in pitcher of ice water and rotate 3X. End on a cold. 2X/ day at least, Educated pt on ways to stretch her LUE wrist and digits into flexion, educated patient on how to complete with digits: Hook formation, long fist, full fist, and roof positions. Yellow t-putty and digit opposition - Objective Findings Objective Findings:: Pt with decreased L wrist and finger edema following tx. States she was able to get hand into full supination position to hold pills. - Charges Timed Code Treatment Minutes: 60 Total Treatment Time: 60 Procedures billed for this date of service:: MT x 2, US, EX Assessment Assessment: Pt is making good progress toward her OT goals. Manual therapy in the shoulder has really decreased the Ulnar wrist and small digit discomfort. Pt has better sensation in the Left forearm skin. Pt is able to make 75% of a full fist independently. Problems/Comments: Pain and weakness. Difficulty opening the door. Patient demonstrates compliance with HEP?: Yes Short Term Goals Goal #1: Pt to be able to make a full fist. Goal to be met by: 07/31/17 Progress towards goal: Progressing Goal #2: Pt to increase LUE wrist flexion to 65 degrees. Goal to be met by: 07/31/17 Progress towards goal: Progressing Goal #3: Pt to increase LUE wrist extension to 50 degrees. Goal to be met by: 07/31/17 Progress towards goal: Progressing Goal #4: Pt to increase mass supervisor fiber locking of LUE to 20# Goal to be met by: 07/31/17 Progress towards goal: Progressing Accessioner Goals Goal #1: Pt to be able to cook pickled meat a weighted ball with the LUE. Goal to be met by: 07/31/17 Progress towards goal: Progressing Goal #2: Pt to increase LUE wrist AROM to be WFL. Goal to be met by: 07/31/17 Progress towards goal: Progressing Goal #3: Pt to be independent with Home exercise program Goal to be met by: 07/31/17 Progress towards goal: Progressing Goal #4: Pt to increase mass supervisor fiber locking of LUE to 30# Goal to be met by: 07/31/17 Progress towards goal: Progressing Plan PLAN OF CARE EXPIRES ON:: 07/31/17 ORDER # VISITS AND/OR THROUGH DATE: July 31, 2017 PLAN: To continue with POC. Frequency: 3 X week Duration: 3 weeks
--- NOTE | 2017-07-24 14:40 | RS.OTDNOTE ---
Subjective Date of Note: 07/24/17 Visit #: 9 Date of Evaluation: 06/26/17 Payer Source: MEDICARE Date of Onset/Injury/Change in Status: 05/03/17 Surgery Performed?: Yes Treatment Diagnosis: Left Intraarticular fracture of Lower end of left radius Treatment Side (optional): Left *Precautions: At risk for falls, painful wrist Prior Level of Function.....Patient was independent with: ADL's, Self Care, Work /Vocation, Caregiving, Ambulation/Mobility, Community Integration/Access History of Condition/Mechanism of Injury: Pt reports she fell on May 03, 2017. Pt was given a soft cast and then had surgery on 05/09/17. Pt was then casted on 05/23/17 with a hard cast and then it was removed on 06/20/17. Pt has had edema and pain and decreased AROM of digits since. Level of Function: Pt completes right arm ADLS. Pt reports difficulty putting on her bra and pulling up her pants and fastening things. Pt is independent with bathing. Pt has difficulty with dressing, cooking, and cleaning and driving. Functional Limitations: Sleep, Self Care, ADL's, Reaching, Pushing, Pulling, Lifting, Carrying, Sitting, Community Access/Integration Current Complaints/Gains: Pt demo good improvement with use of (L) hand during fx activites. Pain Assessment - Pain Description Pain Description: Tightness, Sharp Pain Location: Left wrist and forearm. Pain with supination on the little finger side. Pain Description: tight, aching Modalities - Hot Pack/Cryotherapy Treatment: Cryotherapy (CP x 10 mins) Interventions - Exercise/Activities Exercise/Activities/Manual Therapy: Pt tolerated Manual therapy to the serratus posterior superior, extensor carpi ulnaris, extensor digitorum. Progressive stretching of LUE wrist into supination and LUE wrist extension/flexion x 10 reps each/2 sets along with radial/ulnar deviation. Pt ed and completed tendon glides x 10/2 each with AROM and progressive PROM/gentle stretching of roof-tops, cat claw, fists, and ball squeezes with HEP instruction continued. Pt was to increase the flexion of the digits. Pt tolerated stretching into full fist with left wrist flexion and increased pain. Hand pumps and full fist x 20 reps. Pt performed coin sorting/picking up along with 3-jaw colt of digits to perform peg board. HOME EXERCISE PROGRAM: contrast Bath instructions for one minute in hot water less than 105 deg. F, and one minute in pitcher of ice water and rotate 3X. End on a cold. 2X/ day at least, Educated pt on ways to stretch her LUE wrist and digits into flexion, educated patient on how to complete with digits: Hook formation, long fist, full fist, and roof positions. Yellow t-putty and digit opposition - Other Treatment/Services Other Services/Treatments: Paraffin - Objective Findings Objective Findings:: Pt with decreased L wrist and finger edema following tx. States she was able to get hand into full supination position to hold pills. - Charges Timed Code Treatment Minutes: 49 Total Treatment Time: 61 Procedures billed for this date of service:: CP Paraffin MT EX Assessment Patient Education: Education of diagnosis, Body/Joint mechanics, Home Exercise Program, Home Safety, Activity Modification, Education of Plan of Care Patient demonstrates compliance with HEP?: Yes Short Term Goals Goal #1: Pt to be able to make a full fist. Goal to be met by: 07/31/17 Progress towards goal: Partially Met Goal #2: Pt to increase LUE wrist flexion to 65 degrees. Goal to be met by: 07/31/17 Progress towards goal: Progressing Goal #3: Pt to increase LUE wrist extension to 50 degrees. Goal to be met by: 07/31/17 Progress towards goal: Progressing Goal #4: Pt to increase mass data steward of LUE to 20# Goal to be met by: 07/31/17 Progress towards goal: Progressing Package Wrapper Goals Goal #1: Pt to be able to medicinal plant picker a weighted ball with the LUE. Goal to be met by: 07/31/17 Progress towards goal: Progressing Goal #2: Pt to increase LUE wrist AROM to be WFL. Goal to be met by: 07/31/17 Progress towards goal: Progressing Goal #3: Pt to be independent with Home exercise program Goal to be met by: 07/31/17 Progress towards goal: Progressing Goal #4: Pt to increase mass data steward of LUE to 30# Goal to be met by: 07/31/17 Progress towards goal: Progressing Plan PLAN OF CARE EXPIRES ON:: 08/30/17 ORDER # VISITS AND/OR THROUGH DATE: July 31, 2017 PLAN: Cont per POC to max fx use of (L) hand wiht decreased c/o pain Frequency: 3 X week Duration: 2 weeks
--- NOTE | 2017-07-25 10:06 | RS.OTDNOTE ---
Subjective Date of Note: 07/20/17 Visit #: 8 Date of Evaluation: 06/26/17 Payer Source: MEDICARE Date of Onset/Injury/Change in Status: 05/03/17 Surgery Performed?: Yes Treatment Diagnosis: Left Intraarticular fracture of Lower end of left radius Treatment Side (optional): Left *Precautions: At risk for falls, painful wrist Prior Level of Function.....Patient was independent with: ADL's, Self Care, Work /Vocation, Caregiving, Ambulation/Mobility, Community Integration/Access History of Condition/Mechanism of Injury: Pt reports she fell on May 03, 2017. Pt was given a soft cast and then had surgery on 05/09/17. Pt was then casted on 05/23/17 with a hard cast and then it was removed on 06/20/17. Pt has had edema and pain and decreased AROM of digits since. Level of Function: Pt completes right arm ADLS. Pt reports difficulty putting on her bra and pulling up her pants and fastening things. Pt is independent with bathing. Pt has difficulty with dressing, cooking, and cleaning and driving. Functional Limitations: Sleep, Self Care, ADL's, Reaching, Pushing, Pulling, Lifting, Carrying, Sitting, Community Access/Integration Current Complaints/Gains: Patient's progress note measurements for LUE wrist: AROM wrist flexion is 40 deg., AAROM of wrist Flexion is 60 deg.,. AROM wrist extension is 35 deg., AAROM of wrist flexionis 60 deg., Mass receptionist nurse of LUE is 2#, Supination of LUE is 60 deg., pronation of LUE is 90 deg.,. MP PIP DIP. Index 60 deg. 75 deg. 40 deg. Long 70 deg. 70 deg. 50 deg. Ring 65 deg. 75 deg. 45 deg. Small 60 deg. 65 deg. 30 deg. Pain Assessment - Pain Description Pain Description: Tightness, Sharp Pain Location: Left wrist and forearm. Pain with supination on the little finger side. Pain Description: tight, aching Current Pain Intensity: 0 Worst Pain Intensity: 6 Modalities - Treatment Modality: Ultrasound Parameters/Method Applied: .4 w/cm2 for 8 minutes to dorsal hand with digits pushed into flexion into a fist to increase elasticity Treatment Area: Left dorsal hand Patient Position: Sitting Interventions - Exercise/Activities Exercise/Activities/Manual Therapy: Pt complained of pain in the small digit, in the ulnar aspect of her hand/wrist. Pt tolerated Manual therapy to the serratus posterior superior, extensor carpi ulnaris, extensor digitorum. Progressive stretching of LUE wrist into supination and LUE wrist extension/ flexion x 10 reps each/2 sets along with radial/ulnar deviation. Pt ed and completed tendon glides x 10/2 each with AROM and progressive PROM/gentle stretching of roof-tops, cat claw, fists, and ball squeezes with HEP instruction continued. Pt was to increase the flexion of the digits. Pt tolerated stretching into full fist with left wrist flexion and increased pain. Hand pumps and full fist x 20 reps. Mass receptionist nurse with 5# gripper x 20 reps. Pt squeezing the red putty to increase flexibility of her digits and increase strength to make a full fist. Nestling change and picking coins up off of the table. Putting pegs into the board with 3 jaw colt pinch x 30 reps. HOME EXERCISE PROGRAM: contrast Bath instructions for one minute in hot water less than 105 deg. F, and one minute in pitcher of ice water and rotate 3X. End on a cold. 2X/ day at least, Educated pt on ways to stretch her LUE wrist and digits into flexion, educated patient on how to complete with digits: Hook formation, long fist, full fist, and roof positions. Yellow t-putty and digit opposition - Objective Findings Objective Findings:: Pt with decreased L wrist and finger edema following tx. States she was able to get hand into full supination position to hold pills. - Charges Timed Code Treatment Minutes: 60 Total Treatment Time: 65 Procedures billed for this date of service:: US, MT, EX x 2 Assessment Assessment: Pt's AROM of digits into a full fist is improving. Pt continues with pain in the hand due to stiffness. Pt is improving in her home exercises. Pt squeezing her putty exercises. Patient Education: Education of diagnosis, Home Exercise Program, Education of Plan of Care Patient demonstrates compliance with HEP?: Yes Short Term Goals Goal #1: Pt to be able to make a full fist. Goal to be met by: 08/03/17 Progress towards goal: Progressing Goal #2: Pt to increase LUE wrist flexion to 65 degrees. Goal to be met by: 08/03/17 Progress towards goal: Progressing Goal #3: Pt to increase LUE wrist extension to 50 degrees. Goal to be met by: 08/03/17 Progress towards goal: Progressing Goal #4: Pt to increase mass receptionist nurse of LUE to 20# Goal to be met by: 07/31/17 Progress towards goal: Progressing Longterm Goals Goal #1: Pt to be able to chicken picker a weighted ball with the LUE. Goal to be met by: 08/10/17 Progress towards goal: Progressing Goal #2: Pt to increase LUE wrist AROM to be WFL. Goal to be met by: 08/10/17 Progress towards goal: Progressing Goal #3: Pt to be independent with Home exercise program Goal to be met by: 08/10/17 Progress towards goal: Progressing Goal #4: Pt to increase mass receptionist nurse of LUE to 30# Goal to be met by: 08/10/17 Progress towards goal: Progressing Plan PLAN OF CARE EXPIRES ON:: 08/13/17 ORDER # VISITS AND/OR THROUGH DATE: August 13, 2017 PLAN: Dr. Norton has increased length of therapy to 3 more weeks to end on August 13, 2017. Frequency: 3 X week Duration: 3 weeks
--- NOTE | 2017-07-25 15:48 | RS.OTDNOTE ---
Subjective Date of Note: 07/25/17 Visit #: 10 Date of Evaluation: 06/26/17 Payer Source: MEDICARE Date of Onset/Injury/Change in Status: 05/03/17 Surgery Performed?: Yes Treatment Diagnosis: Left Intraarticular fracture of Lower end of left radius Treatment Side (optional): Left *Precautions: At risk for falls, painful wrist Prior Level of Function.....Patient was independent with: ADL's, Self Care, Work /Vocation, Caregiving, Ambulation/Mobility, Community Integration/Access History of Condition/Mechanism of Injury: Pt reports she fell on May 03, 2017. Pt was given a soft cast and then had surgery on 05/09/17. Pt was then casted on 05/23/17 with a hard cast and then it was removed on 06/20/17. Pt has had edema and pain and decreased AROM of digits since. Level of Function: Pt completes right arm ADLS. Pt reports difficulty putting on her bra and pulling up her pants and fastening things. Pt is independent with bathing. Pt has difficulty with dressing, cooking, and cleaning and driving. Functional Limitations: Sleep, Self Care, ADL's, Reaching, Pushing, Pulling, Lifting, Carrying, Sitting, Community Access/Integration Current Complaints/Gains: Pt continues stating and demo improvement with AROM and fx use of UE. Pain Assessment - Pain Description Pain Description: Tightness, Sharp Pain Location: Left wrist and forearm. Pain with supination on the little finger side. Pain Description: tight, aching Modalities - Hot Pack/Cryotherapy Treatment: Cryotherapy (x10 mins following TE) Interventions - Exercise/Activities Exercise/Activities/Manual Therapy: Pt complained of pain in the small digit, in the ulnar aspect of her hand/wrist. Pt tolerated Manual therapy to the serratus posterior superior, extensor carpi ulnaris, extensor digitorum. Progressive stretching of LUE wrist into supination and LUE wrist extension/ flexion x 10 reps each/2 sets along with radial/ulnar deviation. Pt ed and completed tendon glides x 10/2 each with AROM and progressive PROM/gentle stretching of roof-tops, cat claw, fists, and ball squeezes with HEP instruction continued. Pt was to increase the flexion of the digits. Pt tolerated stretching into full fist with left wrist flexion and increased pain. Hand pumps and full fist x 20 reps. Mass airplane coverer with 5# gripper x 20 reps. Pt squeezing the red putty to increase flexibility of her digits and increase strength to make a full fist. Nestling change and picking coins up off of the table. Putting pegs into the board with 3 jaw colt pinch x 30 reps. HOME EXERCISE PROGRAM: contrast Bath instructions for one minute in hot water less than 105 deg. F, and one minute in pitcher of ice water and rotate 3X. End on a cold. 2X/ day at least, Educated pt on ways to stretch her LUE wrist and digits into flexion, educated patient on how to complete with digits: Hook formation, long fist, full fist, and roof positions. Yellow t-putty and digit opposition - Objective Findings Objective Findings:: Pt with decreased L wrist and finger edema following tx. States she was able to get hand into full supination position to hold pills. - Charges Timed Code Treatment Minutes: 48 Total Treatment Time: 57 Procedures billed for this date of service:: EX2 MT CP Assessment Patient Education: Education of diagnosis, Body/Joint mechanics, Home Exercise Program, Home Safety, Activity Modification, Education of Plan of Care Patient demonstrates compliance with HEP?: Yes Short Term Goals Goal #1: Pt to be able to make a full fist. Goal to be met by: 08/03/17 Progress towards goal: Progressing Comments: 75% Goal #2: Pt to increase LUE wrist flexion to 65 degrees. Goal to be met by: 08/03/17 Progress towards goal: Progressing Comments: Plate hinders ROM Goal #3: Pt to increase LUE wrist extension to 50 degrees. Goal to be met by: 08/03/17 Progress towards goal: Partially Met Goal #4: Pt to increase mass airplane coverer of LUE to 20# Goal to be met by: 07/31/17 Progress towards goal: Progressing Intermediate Goals Goal #1: Pt to be able to pickling tank operator a weighted ball with the LUE. Goal to be met by: 08/10/17 Progress towards goal: Partially Met Goal #2: Pt to increase LUE wrist AROM to be WFL. Goal to be met by: 08/10/17 Progress towards goal: Progressing Goal #3: Pt to be independent with Home exercise program Goal to be met by: 08/10/17 Progress towards goal: Progressing Goal #4: Pt to increase mass airplane coverer of LUE to 30# Goal to be met by: 08/10/17 Progress towards goal: Progressing Plan PLAN OF CARE EXPIRES ON:: 08/13/17 ORDER # VISITS AND/OR THROUGH DATE: August 13, 2017 PLAN: Cont per POC to max fx UE ROM with decreased c/o pain Frequency: 3 X week Duration: 2 weeks
--- NOTE | 2017-07-30 09:59 | RS.OTDNOTE ---
Subjective Date of Note: 07/27/17 Visit #: 11 Date of Evaluation: 06/26/17 Payer Source: MEDICARE Date of Onset/Injury/Change in Status: 05/03/17 Surgery Performed?: Yes Treatment Diagnosis: Left Intraarticular fracture of Lower end of left radius Treatment Side (optional): Left *Precautions: At risk for falls, painful wrist Prior Level of Function.....Patient was independent with: ADL's, Self Care, Work /Vocation, Caregiving, Ambulation/Mobility, Community Integration/Access History of Condition/Mechanism of Injury: Pt reports she fell on May 03, 2017. Pt was given a soft cast and then had surgery on 05/09/17. Pt was then casted on 05/23/17 with a hard cast and then it was removed on 06/20/17. Pt has had edema and pain and decreased AROM of digits since. Level of Function: Pt completes right arm ADLS. Pt reports difficulty putting on her bra and pulling up her pants and fastening things. Pt is independent with bathing. Pt has difficulty with dressing, cooking, and cleaning and driving. Functional Limitations: Sleep, Self Care, ADL's, Reaching, Pushing, Pulling, Lifting, Carrying, Sitting, Community Access/Integration Current Complaints/Gains: Pt states she continues to utilize her hand more during fx activites. States she is feeling stronger and has 0-min c/o pain. Pain Assessment - Pain Description Pain Description: Tightness, Dull Pain Location: Left wrist and forearm. Pain with supination on the little finger side. Pain Description: tight, aching Current Pain Intensity: 1-2 Worst Pain Intensity: 5 Modalities - Hot Pack/Cryotherapy Treatment: Cryotherapy (Ice massage/cp application following TE) Interventions - Exercise/Activities Exercise/Activities/Manual Therapy: Pt tolerated Manual therapy to the serratus posterior superior, extensor carpi ulnaris, extensor digitorum. Progressive stretching of LUE wrist into supination and LUE wrist extension/flexion x 10 reps each/2 sets along with radial/ulnar deviation. Pt ed and completed tendon glides x 10/2 each with AROM and progressive PROM/gentle stretching of roof-tops, cat claw, fists, and ball squeezes with HEP instruction continued. Pt was to increase the flexion of the digits. Pt tolerated stretching into full fist with left wrist flexion and increased pain. Hand pumps and full fist x 20 reps. Mass director experimental medicine with 5# gripper x 20 reps. Pt squeezing the red putty to increase flexibility of her digits and increase strength to make a full fist. Nestling change and picking coins up off of the table. Pt also completed peg board and green t-putty and digit extension ex's. HOME EXERCISE PROGRAM: contrast Bath instructions for one minute in hot water less than 105 deg. F, and one minute in pitcher of ice water and rotate 3X. End on a cold. 2X/ day at least, Educated pt on ways to stretch her LUE wrist and digits into flexion, educated patient on how to complete with digits: Hook formation, long fist, full fist, and roof positions. Yellow t-putty and digit opposition - Objective Findings Objective Findings:: Pt with decreased L wrist and finger edema following tx. States she was able to get hand into full supination position to hold pills. - Charges Timed Code Treatment Minutes: 42 Total Treatment Time: 50 Procedures billed for this date of service:: MT EX2 CP Assessment Patient Education: Education of diagnosis, Body/Joint mechanics, Home Exercise Program, Home Safety, Activity Modification, Education of Plan of Care Patient demonstrates compliance with HEP?: Yes Short Term Goals Goal #1: Pt to make full fist Goal to be met by: 08/03/17 Progress towards goal: Partially Met Goal #2: Pt to increase LUE wrist flexion to 65 degrees. Goal to be met by: 08/03/17 Progress towards goal: Progressing Goal #3: Pt to increase LUE wrist extension to 50 degrees. Goal to be met by: 08/03/17 Progress towards goal: Met Goal #4: Pt to increase mass director experimental medicine of LUE to 20# Goal to be met by: 07/31/17 Progress towards goal: Progressing Timing Adjuster Goals Goal #1: Pt to be able to case picker a weighted ball with the LUE. Goal to be met by: 08/10/17 Progress towards goal: Partially Met Goal #2: Pt to increase LUE wrist AROM to be WFL. Goal to be met by: 08/10/17 Progress towards goal: Progressing Goal #3: Pt to be independent with Home exercise program Goal to be met by: 08/10/17 Progress towards goal: Progressing Goal #4: Pt to increase mass director experimental medicine of LUE to 30# Goal to be met by: 08/10/17 Progress towards goal: Progressing Plan PLAN OF CARE EXPIRES ON:: 08/13/17 ORDER # VISITS AND/OR THROUGH DATE: August 13, 2017 PLAN: Pt to complete x 1 tx session and DC with HEP Frequency: 1 X week Duration: 1 week
--- NOTE | 2017-07-31 13:56 | RS.OTDNOTE ---
Subjective Date of Note: 07/31/17 Visit #: 12 Date of Evaluation: 06/26/17 Payer Source: MEDICARE Date of Onset/Injury/Change in Status: 05/03/17 Surgery Performed?: Yes Treatment Diagnosis: Left Intraarticular fracture of Lower end of left radius Treatment Side (optional): Left *Precautions: At risk for falls, painful wrist Prior Level of Function.....Patient was independent with: ADL's, Self Care, Work /Vocation, Caregiving, Ambulation/Mobility, Community Integration/Access History of Condition/Mechanism of Injury: Pt reports she fell on May 03, 2017. Pt was given a soft cast and then had surgery on 05/09/17. Pt was then casted on 05/23/17 with a hard cast and then it was removed on 06/20/17. Pt has had edema and pain and decreased AROM of digits since. Level of Function: Pt completes right arm ADLS. Pt reports difficulty putting on her bra and pulling up her pants and fastening things. Pt is independent with bathing. Pt has difficulty with dressing, cooking, and cleaning and driving. Current Complaints/Gains: Pt reports pain on ulnar side of forearm. States "burning" in thumb/tip of digits. States pain following therapy/stretching. States I with HEP and that she will continue working on her hand ferry terminal supervisor but that she is pleased with progress of hand use. Pain Assessment - Pain Description Pain Description: Tightness, Dull Pain Location: Left wrist and forearm. Pain with supination on the little finger side. Pain Description: tight, aching Current Pain Intensity: 2 Worst Pain Intensity: 5+ Interventions - Exercise/Activities Exercise/Activities/Manual Therapy: Progressive stretching of LUE wrist into supination and LUE wrist extension/flexion x 10 reps each/2 sets along with radial/ulnar deviation. Pt ed and completed tendon glides x 10/2 each with AROM and progressive PROM/gentle stretching of roof-tops, cat claw, fists, and ball squeezes with HEP instruction continued. Pt tolerated stretching into full fist with left wrist flexion and increased pain. Hand pumps and full fist x 20 reps. Mass ferry terminal supervisor with 5# gripper x 20 reps. Pt squeezing the red putty to increase flexibility of her digits and increase strength to make a full fist. Nestling change and picking coins up off of the table. Pt also completed peg board and green t-putty and digit extension ex's. HOME EXERCISE PROGRAM: contrast Bath instructions for one minute in hot water less than 105 deg. F, and one minute in pitcher of ice water and rotate 3X. End on a cold. 2X/ day at least, Educated pt on ways to stretch her LUE wrist and digits into flexion, educated patient on how to complete with digits: Hook formation, long fist, full fist, and roof positions. Yellow t-putty and digit opposition - Objective Findings Objective Findings:: AROM (L) hand WFL. Pt I with HEP. Pt utilizing ProPlan salt baths for pain relief. - Charges Timed Code Treatment Minutes: 32 Total Treatment Time: 32 Procedures billed for this date of service:: EX2 Assessment Patient Education: Education of diagnosis, Body/Joint mechanics, Home Exercise Program, Home Safety, Activity Modification, Education of Plan of Care Patient demonstrates compliance with HEP?: Yes Short Term Goals Goal #1: Pt to make full fist Goal to be met by: 08/03/17 Progress towards goal: Partially Met Goal #2: Pt to increase LUE wrist flexion to 65 degrees. Goal to be met by: 08/03/17 Progress towards goal: Not Met Goal #3: Pt to increase LUE wrist extension to 50 degrees. Goal to be met by: 08/03/17 Progress towards goal: Met Goal #4: Pt to increase mass ferry terminal supervisor of LUE to 20# Goal to be met by: 07/31/17 Progress towards goal: Not Met Sander [employer] Pencils Goals Goal #1: Pt to be able to cotton picking machine operator a weighted ball with the LUE. Goal to be met by: 08/10/17 Progress towards goal: Met Goal #2: Pt to increase LUE wrist AROM to be WFL. Goal to be met by: 08/10/17 Progress towards goal: Met Goal #3: Pt to be independent with Home exercise program Goal to be met by: 08/10/17 Progress towards goal: Met Goal #4: Pt to increase mass ferry terminal supervisor of LUE to 30# Goal to be met by: 08/10/17 Progress towards goal: Not Met Plan PLAN OF CARE EXPIRES ON:: 08/13/17 ORDER # VISITS AND/OR THROUGH DATE: August 13, 2017 PLAN: Pt DC'd at this time. Pt I with HEP and is to continue with PRE's and epsom salt baths for pain erwin and ROM Frequency: DC Duration: DC
--- NOTE | 2017-08-01 09:16 | RS.OTDCSUM ---
Subjective Date of Discharge: 07/30/17 Date of Evaluation: 06/26/17 Number of Visits: 12 Treatment Diagnosis: Left wrist stiffness, Left wrist pain Current Level of Function: Pt continues with difficulty with buttoning buttons, pain in the ulnar aspect of the left wrist. Pt has difficulty with supination and increased pain. Pt has weakness in door slinger. Pt has burning in the left thumb/ tip of digits, Pt can make 75% of actual fist. Pt has difficulty with turning door knobs. Functional score is 82.5% or 17.5% impaired. Current Complaints/Gains: Pain in the left ulnar aspect of wrist. Pain with supination. Pt has burning in the thumb/tip of digits. Increased pain after therapy. Pain Assessment - Pain Description Pain Description: Tightness, Dull Pain Location: Left wrist and forearm. Pain with supination on the little finger side. Pain Description: tight, aching Current Pain Intensity: 1/10 Worst Pain Intensity: 9+/10 Functional Outcome Measures UE Functional Index: 17 - G Codes & Severity Modifier G Codes: Goal CI. discharge code is CI Source of G Code score: Carrying, moving, and handling Observation - Observation Posture: Forward Head, Rounded Shoulders Handedness: Right Shoulder ROM: Bilaterally WFL's Shoulder Muscle Strength: Bilaterally WFL's Elbow ROM: Right WFL's Elbow Muscle Strength: Right WFL's - Left Elbow ROM Left Elbow Extension: wfl Left Elbow Flexion: 0 Left Elbow Supination: 60 Left Elbow Pronation: 90 Left Elbow ROM Limitations: Muscle Weakness, Pain - Left Elbow Strength Left Elbow Flexion: 4- Good- Left Forearm Pronation: 4- Good- Left Forearm Supination: 3 Fair - Right Elbow Strength Right Elbow Extension: 4+ Good + Right Elbow Flexion: 4+ Good + Right Forearm Pronation: 4+ Good + Right Forearm Supination: 4+ Good + Wrist ROM: Right WFL's Wrist Muscle Strength: Right WFL's - Left Wrist/Hand ROM Left Wrist Extension: 40 Left Wrist Flexion: 45 Left Wrist Ulnar Deviation: 15 Left Forearm Pronation: 90 Left Forearm Supination: 60 Left Wrist ROM Testing Limitations: Pain Left Hand ROM: 75% of making a full fist. - Left Wrist Strength Left Wrist Extension: 3- Fair- Left Wrist Flexion: 3- Fair- Left Wrist Radial Deviation: 3- Fair- Left Wrist Ulnar Deviation: 3- Fair- Left Forearm Pronation: 3- Fair- Left Forearm Supination: 3- Fair- - Log Handling Equipment Operator Strength Left Log Handling Equipment Operator Strength: 4 Right Log Handling Equipment Operator Strength: 40 Palpation Palpation Findings: Tenderness Sensation Right Upper Extremity: Intact/Normal Left Upper Extremity: Intact/Normal Sensation Description: Numbness Comments: numbness in Left thumb tip, and digits of left hand Interventions - Exercise/Activities Exercise/Activities/Manual Therapy: Progressive stretching of LUE wrist into supination and LUE wrist extension/flexion x 10 reps each/2 sets along with radial/ulnar deviation. Pt ed and completed tendon glides x 10/2 each with AROM and progressive PROM/gentle stretching of roof-tops, cat claw, fists, and ball squeezes with HEP instruction continued. Pt tolerated stretching into full fist with left wrist flexion and increased pain. Hand pumps and full fist x 20 reps. Mass door slinger with 5# gripper x 20 reps. Pt squeezing the red putty to increase flexibility of her digits and increase strength to make a full fist. Nestling change and picking coins up off of the table. Pt also completed peg board and green t-putty and digit extension ex's. HOME EXERCISE PROGRAM: contrast Bath instructions for one minute in hot water less than 105 deg. F, and one minute in pitcher of ice water and rotate 3X. End on a cold. 2X/ day at least, Educated pt on ways to stretch her LUE wrist and digits into flexion, educated patient on how to complete with digits: Hook formation, long fist, full fist, and roof positions. Yellow t-putty and digit opposition - Objective Findings Objective Findings:: AROM (L) hand WFL. Pt I with HEP. Pt utilizing epsBuddyBet salt baths for pain relief. - Charges Timed Code Treatment Minutes: . Total Treatment Time: . Procedures billed for this date of service:: Ex x2 Assessment Assessment: Pt continues with weakness, increased pain in the ulnar aspect of the wrist, pain and weakness with supination, impaired sensation of tips of digits. Pt continues with very limited door slinger in LUE. Pt has limited flexion of PIP and DIP joints. Rehab Potential: Good Problems/Comments: Pt is wanting to go back to see Dr. Norton for answers on why she is experiencing such pain with wrist rotation and the TFCC ligament area is hurting her on the ulnar aspect of the wrist. Short Term Goals Goal #1: Pt to make full fist Goal to be met by: 08/03/17 Progress towards goal: Partially Met Goal #2: Pt to increase LUE wrist flexion to 65 degrees. Goal to be met by: 08/03/17 Progress towards goal: Not Met Goal #3: Pt to increase LUE wrist extension to 50 degrees. Goal to be met by: 08/03/17 Progress towards goal: Met Goal #4: Pt to increase mass door slinger of LUE to 20# Goal to be met by: 07/31/17 Progress towards goal: Not Met Galvanometer Assembler Goals Goal #1: Pt to be able to molded goods spot picker a weighted ball with the LUE. Goal to be met by: 08/10/17 Progress towards goal: Met Goal #2: Pt to increase LUE wrist AROM to be WFL. Goal to be met by: 08/10/17 Progress towards goal: Met Goal #3: Pt to be independent with Home exercise program Goal to be met by: 08/10/17 Progress towards goal: Met Goal #4: Pt to increase mass door slinger of LUE to 30# Goal to be met by: 08/10/17 Progress towards goal: Not Met Plan Reason for Discharge:: Self-Discharge Comments: Pt stopped treatment because she wants to go back to doctor and let him look at her wrist for answers on why she continues with the mentioned problems.
== END 2017-08-06 23:59 ==
PROVIDERS: ATTEND Physician Assistant
DX: S52.572D Other intraarticular fracture of lower end of left radius, subsequent encounter for closed fracture with routine healing (principal)